=== PATIENT | female | born 1935 | race Caucasian/White ===

== ENCOUNTER 2021-11-12 22:35 | Inpatient (IN) | payer OTHER ==
[2021-11-12 23:05] VITALS: BMI 19.1
[2021-11-12] MEDS ORDERED: SODIUM CHLORIDE 0.9% 500 ML INFUS.BAG IV ONE (23:49)
[2021-11-13 01:37] LABS: BASO % 1.1 % (0-2.0); EOS % 2.3 % (0-4.5); HEMATOCRIT 37.1 % (32.4-45.2); HEMOGLOBIN 12.2 GM/dL (10.7-15.3); LYMPH % 17.5 % (8-40); MCH 30.1 pg (25.7-33.7); MCHC 32.8 g/dl (32.0-36.0); MEAN CELL VOLUME 91.9 fl (80-96); MEAN PLT VOLUME 7.4 fl (7.5-11.1); MONO % 7.5 % (3.8-10.2); NEUT % 71.6 % (42.8-82.8); PLATELET COUNT 355 10^3/uL (134-434); RBC 4.04 M/mm3 (3.60-5.2); RDW 14.5 % (11.6-15.6); WHITE BLOOD COUNT 7.2 K/mm3 (4.0-10.0)
[2021-11-13 01:47] LABS: INR 1.17 (0.83-1.09); PROTHROMBIN TIME (PATIENT) 13.5 SEC (9.7-13.0)
[2021-11-13 01:50] LABS: ACTIVATED PTT 39.7 SECONDS (25.2-36.5)
[2021-11-13 01:54] LABS: VENOUS BASE EXCESS 3.5 mmol/L (-2-2); VENOUS PCO2 48.7 mmHg (38-52); VENOUS PH 7.396 (7.310-7.410)
[2021-11-13 01:57] LABS: CALCIUM 8.3 mg/dL (8.5-10.1)
[2021-11-13 01:58] LABS: ALBUMIN 2.9 g/dl (3.4-5.0); BLOOD UREA NITROGEN 31.1 mg/dL (7-18)
[2021-11-13 02:01] LABS: CREATININE 0.6 mg/dL (0.55-1.3)
[2021-11-13 02:02] LABS: BILIRUBIN,TOTAL 0.6 mg/dL (0.2-1)
[2021-11-13 02:03] LABS: TOT PROT 6.3 g/dl (6.4-8.2)
[2021-11-13] MEDS ORDERED: ACETAMINOPHEN 1000 MG/100 ML BAG IVPB ONE (03:20)
[2021-11-13] MEDS ORDERED: morphine CARPU-JECT 2 MG/1 ML DISP.SYRIN IVPUSH ONE ×2 (03:20→05:24)
[2021-11-13] MEDS ORDERED: ACETAMINOPHEN INJECTION 100 ML IVPB ONE ×2 (04:02→10:19)
[2021-11-13] MEDS ORDERED: morphine SULFATE 4 MG/ML VIAL ONE (04:02)
[2021-11-13 06:01] VITALS: RESP 16
[2021-11-13] MEDS ORDERED: ACETAMINOPHEN 1000 MG/100 ML BAG IVPB PRN (08:35)
[2021-11-13] MEDS ORDERED: SODIUM CHLORIDE 1,000 ML IV SCH (08:45)
[2021-11-13] MEDS ORDERED: ACETAMINOPHEN 1000 MG/100 ML BAG IVPB SCH (09:00)
[2021-11-13 17:27] VITALS: TEMP 98
[2021-11-13 19:52] VITALS: BP 115/67; PULSE 86
[2021-11-13] MEDS ORDERED: ENOXAPARIN NA (PORCINE) 40 MG/0.4 ML DISP.SYRIN SQ SCH (22:00)
== END 2021-11-13 17:38 | DRG 534 ==
LOC: JER 22:35 → JERBED 11-13 01:56
PROVIDERS: ADMIT Internal Medicine; ATTEND Internal Medicine
DX: S72.491A Other fracture of lower end of right femur, initial encounter for closed fracture (principal); E87.1 Hypo-osmolality and hyponatremia; S72.421A Displaced fracture of lateral condyle of right femur, initial encounter for closed fracture; I34.0 Nonrheumatic mitral (valve) insufficiency; E86.1 Hypovolemia; F03.90 Unspecified dementia, unspecified severity, without behavioral disturbance, psychotic disturbance, mood disturbance, and anxiety; R00.0 Tachycardia, unspecified; I95.9 Hypotension, unspecified; M24.562 Contracture, left knee; M24.561 Contracture, right knee; Z99.3 Dependence on wheelchair; Z86.718 Personal history of other venous thrombosis and embolism; X58.XXXA Exposure to other specified factors, initial encounter; Y92.098 Other place in other non-institutional residence as the place of occurrence of the external cause
CPT/HCPCS: 0241U-QW; 36415; 70450-TC; 71045-TC-FY; 71275-TC; 72125-TC; 73552-TC-RT-FY; 73562-TC-RT-FY; 73700-TC-RT; 80053; 82550; 82553; 82803; 83605; 84484; 85025; 85610; 85730; 86850; 86900; 86901; 87040; 93005; 93010; 99285-25; Q9967

== ENCOUNTER 2022-08-09 13:04 | Inpatient (IN) | payer OTHER ==
[2022-08-09] MEDS ORDERED: ACETAMINOPHEN 1000 MG/100 ML BAG IVPB ONE (14:01)
[2022-08-09] MEDS ORDERED: ACETAMINOPHEN INJECTION 100 ML IVPB ONE (14:55)
[2022-08-09 15:00] LABS: BASO % 0.7 % (0-2.0); EOS % 1.2 % (0-4.5); HEMOGLOBIN 12.6 GM/dL (10.7-15.3); LYMPH % 21.5 % (8-40); MCH 29.9 pg (25.7-33.7); MCHC 31.4 g/dl (32.0-36.0); MEAN CELL VOLUME 95.1 fl (80-96); MEAN PLT VOLUME 7.2 fl (7.5-11.1); MONO % 6.2 % (3.8-10.2); NEUT % 70.4 % (42.8-82.8); PLATELET COUNT 320 10^3/uL (134-434); RBC 4.21 M/mm3 (3.60-5.2); RDW 16.4 % (11.6-15.6); WHITE BLOOD COUNT 8.6 K/mm3 (4.0-10.0)
[2022-08-09 15:07] LABS: INR 1.04 (0.83-1.09); PROTHROMBIN TIME (PATIENT) 12.1 SEC (9.7-13.0)
[2022-08-09 15:10] LABS: ACTIVATED PTT 49.9 SECONDS (25.2-36.5)
[2022-08-09 15:18] LABS: POTASSIUM 4.6 mmol/L (3.5-5.1)
[2022-08-09 15:20] LABS: CALCIUM 9.1 mg/dL (8.5-10.1)
[2022-08-09 15:21] LABS: ALBUMIN 3.5 g/dl (3.4-5.0); BLOOD UREA NITROGEN 30.1 mg/dL (7-18)
[2022-08-09 15:24] LABS: CREATININE 0.5 mg/dL (0.55-1.3)
[2022-08-09 15:25] LABS: TOT PROT 7.1 g/dl (6.4-8.2)
[2022-08-09 15:26] LABS: BILIRUBIN,TOTAL 0.3 mg/dL (0.2-1)
[2022-08-09] MEDS ORDERED: ACETAMINOPHEN 500 MG TABLET (FP) PO PRN (18:11)
[2022-08-09] MEDS ORDERED: ALBUTEROL SO4 2.5/IPRATROPIUM 0.5 INH SOL 3 ML VIAL.NEB. NEB PRN (18:11)
[2022-08-09] MEDS ORDERED: oxyCODONE HCL 5 MG TABLET PO PRN (18:11)
[2022-08-09 18:23] VITALS: BMI 17.6
[2022-08-09] MEDS ORDERED: LORazepam 2 MG/ML SDV VIAL IVPUSH ONE (18:50)
[2022-08-09] MEDS ORDERED: levETIRAcetam 500 MG/5 ML INJECTION VIAL IVPB ONE ×2 (18:55→19:02)
[2022-08-09] MEDS: SENNOSIDES 8.6MG TABLET (FP) PO SCH (21:28)
[2022-08-09] MEDS: LATANOPROST 0.005% OPHTH SOLN 2.5ML BOTTLE OU SCH (23:26)
[2022-08-09] MEDS: NYSTATIN 100000 UNIT/GM TOPICAL OINTMENT 15 GM TUBE TP SCH (23:26)
[2022-08-09] MEDS: BRIMONIDINE TARTRATE 0.2% OPHTHALMIC 5 ML BOTTLE OU SCH (23:26)
[2022-08-09] MEDS: TIMOLOL 0.5% OPHTHALMIC SOL 5 ML BOTTLE OU SCH (23:26)
[2022-08-10] MEDS: BRIMONIDINE TARTRATE 0.2% OPHTHALMIC 5 ML BOTTLE OU SCH ×3 (06:09→22:21)
[2022-08-10 07:23] LABS: BASO % 0.5 % (0-2.0); EOS % 0.3 % (0-4.5); HEMATOCRIT 30.3 % (32.4-45.2); HEMOGLOBIN 10.3 GM/dL (10.7-15.3); LYMPH % 11.3 % (8-40); MCH 31.3 pg (25.7-33.7); MCHC 33.9 g/dl (32.0-36.0); MEAN CELL VOLUME 92.3 fl (80-96); MEAN PLT VOLUME 7.7 fl (7.5-11.1); MONO % 10.2 % (3.8-10.2); NEUT % 77.7 % (42.8-82.8); PLATELET COUNT 251 10^3/uL (134-434); RBC 3.29 M/mm3 (3.60-5.2); RDW 15.1 % (11.6-15.6); WHITE BLOOD COUNT 5.2 K/mm3 (4.0-10.0)
[2022-08-10 07:33] LABS: POTASSIUM 3.8 mmol/L (3.5-5.1)
[2022-08-10 07:36] LABS: CALCIUM 8.5 mg/dL (8.5-10.1)
[2022-08-10 07:37] LABS: BLOOD UREA NITROGEN 30.8 mg/dL (7-18)
[2022-08-10 07:40] LABS: CREATININE 0.5 mg/dL (0.55-1.3)
[2022-08-10] MEDS ORDERED: ACETAMINOPHEN 1000 MG/100 ML BAG IVPB PRN (08:37)
[2022-08-10] MEDS ORDERED: FUROSEMIDE 40 MG TABLET (FP) PO SCH (10:00)
[2022-08-10] MEDS: ENOXAPARIN NA (PORCINE) 40 MG/0.4 ML DISP.SYRIN SQ SCH (10:45)
[2022-08-10] MEDS: MULTIVITAMINS (DAILY MVI) TABLET (FP) PO SCH (10:45)
[2022-08-10] MEDS: levETIRAcetam 500 MG/5 ML INJECTION VIAL IVPB SCH ×2 (10:46→22:19)
[2022-08-10] MEDS: ASCORBIC ACID 500 MG TABLET (FP) PO SCH (10:46)
[2022-08-10] MEDS: TIMOLOL 0.5% OPHTHALMIC SOL 5 ML BOTTLE OU SCH ×2 (10:47→22:21)
[2022-08-10] MEDS: NYSTATIN 100000 UNIT/GM TOPICAL OINTMENT 15 GM TUBE TP SCH ×2 (10:48→22:22)
[2022-08-10] MEDS ORDERED: SODIUM CHLORIDE 0.9% 500 ML INFUS.BAG IV ONE (16:57)
[2022-08-10] MEDS ORDERED: SODIUM CHLORIDE 500 ML IV STA (16:58)
[2022-08-10] MEDS ORDERED: SODIUM CHLORIDE 1,000 ML IV SCH (17:00)
[2022-08-10] MEDS: LATANOPROST 0.005% OPHTH SOLN 2.5ML BOTTLE OU SCH (22:20)
[2022-08-10] MEDS: SENNOSIDES 8.6MG TABLET (FP) PO SCH (22:23)
[2022-08-11] MEDS: BRIMONIDINE TARTRATE 0.2% OPHTHALMIC 5 ML BOTTLE OU SCH ×2 (05:45→13:22)
[2022-08-11 08:28] LABS: EOS % 0.4 % (0-4.5); HEMATOCRIT 29.2 % (32.4-45.2); HEMOGLOBIN 9.6 GM/dL (10.7-15.3); LYMPH % 13.8 % (8-40); MCH 30.5 pg (25.7-33.7); MCHC 33.1 g/dl (32.0-36.0); MEAN CELL VOLUME 92.2 fl (80-96); MEAN PLT VOLUME 7.6 fl (7.5-11.1); NEUT % 73.8 % (42.8-82.8); PLATELET COUNT 235 10^3/uL (134-434); RBC 3.16 M/mm3 (3.60-5.2); RDW 15.2 % (11.6-15.6); WHITE BLOOD COUNT 5.2 K/mm3 (4.0-10.0)
[2022-08-11] MEDS: MULTIVITAMINS (DAILY MVI) TABLET (FP) PO SCH (09:29)
[2022-08-11] MEDS: ASCORBIC ACID 500 MG TABLET (FP) PO SCH (09:29)
[2022-08-11] MEDS: ENOXAPARIN NA (PORCINE) 40 MG/0.4 ML DISP.SYRIN SQ SCH ×3 (09:30→10:44)
[2022-08-11] MEDS: levETIRAcetam 500 MG/5 ML INJECTION VIAL IVPB SCH (09:30)
[2022-08-11] MEDS: NYSTATIN 100000 UNIT/GM TOPICAL OINTMENT 15 GM TUBE TP SCH (09:30)
[2022-08-11] MEDS: TIMOLOL 0.5% OPHTHALMIC SOL 5 ML BOTTLE OU SCH (09:31)
[2022-08-11 15:39] VITALS: RESP 18
[2022-08-11 19:24] VITALS: BP 123/62; PULSE 80; TEMP 97.6
[2022-08-12] MEDS ORDERED: FUROSEMIDE 20 MG TABLET (FP) PO SCH (10:00)
== END 2022-08-11 19:42 | DRG 100 ==
LOC: JER 13:04 → JERBED 16:42 → J4W 20:01
PROVIDERS: ADMIT Internal Medicine; ATTEND Internal Medicine
DX: R56.9 Unspecified convulsions (principal); E43 Unspecified severe protein-calorie malnutrition; R64 Cachexia; Z68.1 Body mass index [BMI] 19.9 or less, adult; F03.90 Unspecified dementia, unspecified severity, without behavioral disturbance, psychotic disturbance, mood disturbance, and anxiety; I34.0 Nonrheumatic mitral (valve) insufficiency
CPT/HCPCS: 0241U-QW; 36415; 70450-TC; 71045-TC-FY; 72125-TC; 72170-TC-FY; 73110-TC-LT-FY; 80048; 80053; 82272; 84484; 85025; 85610; 85730; 93005; 93010; 99285-25